=== PATIENT | male | born 1940 | race Hispanic/Latino ===

== ENCOUNTER 2018-11-13 11:15 | Emergency (ER) | payer MEDICARE ==
[2018-11-13 11:16] VITALS: BMI 23.9
--- NOTE | 2018-11-13 12:13 | ED PDOC ---
Arrival/HPI - General Chief Complaint: Cough, Cold, Congestion Time Seen by Provider: 11/13/18 11:38 - History of Present Illness Narrative History of Present Illness (Text): 78 yr old male w/ hx of RA on 2.5 mg Prednisone PO, L hip replacement, recent dx w/ pharyngitis and given 10d amoxicillin p/w voice change. Pt notes voice change ever since pharyngitis / sore throat began. He noted a cough as well as sore throat previous to treatment but notes that all his symptoms of cough, congestion, have now resolved and he is only concerned that his voice has changed. No slurred speech or difficulty swallowing. No difficulty moving his tongue. No change in sensation. No coughing now that he has been treated. Finished his abx yesterday. No headache, fever, chills or night sweats. No chest pain or sob. No joint pain or rashes. No neck stiffness. No new or sig. change in voice since being treated. No other complaints. Past Medical History - Musculoskeletal/Rheumatological Hx Arthritis: Yes - Gastrointestinal Hx Gastrointestinal Disorders: No - Genitourinary/Gynecological Hx Genitourinary Disorders: No Hx Reproductive Disorders: No - Psychiatric Hx Depression: No Hx Emotional Abuse: No Hx Physical Abuse: No Hx Substance Use: No - Surgical History Hx Orthopedic Surgery: Yes (LEFT HIP REPLACMENT 2005) - Anesthesia Hx Anesthesia: Yes Hx Anesthesia Reactions: No Hx Malignant Hyperthermia: No - Suicidal Assessment Feels Threatened In Home Enviroment: No Family/Social History Family/Social History: Unknown Family HX Smoking Status: Never Smoked Hx Alcohol Use: No Hx Substance Use: No Allergies/Home Meds Allergies/Adverse Reactions: Allergies No Known Allergies Allergy (Verified 05/20/16 13:52) Home Medications: Home Meds Medication Instructions Recorded Confirmed Prednisone 5 mg PO DAILY 07/14/13 05/20/16 Folic Acid 0.8 mg PO DAILY 05/15/16 05/20/16 Review of Systems - Review of Systems Constitutional: absent: Fatigue, Weight Change, Fevers, Night Sweats Eyes: absent: Vision Changes, Photophobia ENT: Voice Changes. absent: Hearing Changes, Tinnitus, TMJ Pain, Sore Throat, Rhinorrhea, Epistaxis, Sinus Congestion Respiratory: absent: SOB, Cough, Sputum, Wheezing Cardiovascular: absent: Chest Pain, Palpitations, Edema, Calf Pain Gastrointestinal: absent: Abdominal Pain, Stool Changes, Constipation, Diarrhea, Nausea, Vomiting, Appetite Changes, Hematochezia, Hematemesis, Anorexia, Food Intolerance Genitourinary Male: absent: Dysuria, Frequency, Hematuria Musculoskeletal: absent: Arthralgias, Back Pain, Neck Pain Skin: absent: Rash, Pruritis, Skin Lesions Neurological: absent: Headache, Dizziness, Focal Weakness, Gait Changes, Speech Changes, Facial Droop Endocrine: absent: Diaphoresis, Polyuria Hemo/Lymphatic: absent: Adenopathy, Easy Bleeding Physical Exam Vital Signs Temp Pulse Resp BP Pulse Ox 11/13/18 11:16 97.6 F 85 18 126/79 100 Temperature: Afebrile Blood Pressure: Normal Pulse: Regular Respiratory Rate: Normal Appearance: Positive for: Well-Appearing, Non-Toxic, Comfortable Pain Distress: None Mental Status: Positive for: Alert and Oriented X 3 - Systems Exam Head: Present: Atraumatic, Normocephalic Pupils: Present: PERRL Extroacular Muscles: Present: EOMI Conjunctiva: Present: Normal Ears: Present: Normal, NORMAL TM Mouth: Present: Moist Mucous Membranes Pharnyx: Present: Normal. No: ERYTHEMA, EXUDATE, TONSILS ENLARGED, Peritonsilar Swelling, Uvular Deviation, Muffled/Hoarse Voice, Strider, Soft Palate/Uvular Edema Nose (External): No: Atraumatic, Abrasion Nose (Internal): Present: Normal Inspection, Clear Mucous. No: Boggy, Purulent Mucous, Septal Deviation, Septal Hematoma Neck: Present: Normal Range of Motion. No: Meningeal Signs, MIDLINE TENDERNESS Respiratory/Chest: Present: Clear to Auscultation, Good Air Exchange. No: Respiratory Distress, Accessory Muscle Use, Wheezes, Decreased Breath Sounds Cardiovascular: Present: Regular Rate and Rhythm. No: Murmurs, Normal S1, S2 Abdomen: Present: Normal Bowel Sounds. No: Tenderness, Distention Back: Present: Normal Inspection. No: CVA Tenderness, Midline Tenderness Upper Extremity: Present: Normal Inspection. No: Cyanosis, Edema Lower Extremity: Present: Normal Inspection. No: Edema Neurological: Present: GCS=15, CN II-XII Intact, Speech Normal Skin: Present: Warm, Dry, Normal Color. No: Rashes Psychiatric: Present: Alert, Oriented x 3, Normal Insight Medical Decision Making ED Course and Treatment: 78 yr old M w/ hx of RA, L hip replacement, recent pharyngitis rx w/ amoxicillin p/w voice change since being dx w/ pharyngitis. Pt expected voice to have changed after RX. No other symptoms. No dyphagia / odynophagia / hot potatoe voice. Swallowing well. No cough. Likely lining of pharynx + vocal cord requires more time for healing, given recent pharygnitis, but given RA on prednisone, hx of PNA will seek labs and imaging. Pt in NAD, VS unremarkable pending imaging and labs pt agreeable 11/13/18 13:59 labs, xray unremarkable repeat exam unremarkable No indication of resp compromise pt in NAD, given return indications and followup clear for d/c home - RAD Interpretation Radiology Orders: 11/13/18 12:05 CHEST TWO VIEWS (PA/LAT) [RAD] Stat - Medication Orders Current Medication Orders: Discontinued Medications Acetaminophen (Tylenol 325mg Tab) 325 mg PO STAT STA Stop: 11/13/18 12:07 Disposition/Present on Arrival - Present on Arrival Any Indicators Present on Arrival: No History of DVT/PE: No History of Uncontrolled Diabetes: No Urinary Catheter: No History of Decub. Ulcer: No History Surgical Site Infection Following: None - Disposition Have Diagnosis and Disposition been Completed?: Yes Diagnosis: Hoarseness or changing voice, URI (upper respiratory infection) Disposition: HOME/ ROUTINE Disposition Time: 13:58 Condition: GOOD Discharge Instructions (ExitCare): Viral Upper Respiratory Infection, Adult (DC) Additional Instructions: JANIS MADDEN, thank you for letting us take care of you today. Your provider was Angel Mitchell and you were treated for CONGESTION. The emergency medical care you received today was directed at your acute symptoms. If you were prescribed any medication, please fill it and take as directed. It may take several days for your symptoms to resolve. Return to the Emergency Department if your symptoms worsen, do not improve, or if you have any other problems. Please contact your doctor or call one of the physicians/clinics you have been referred to that are listed on the Patient Visit Information form that is included in your discharge packet. Bring any paperwork you were given at discharge with you along with any medications you are taking to your follow up visit. Our treatment cannot replace ongoing medical care by a primary care provider outside of the emergency department. Thank you for allowing the [facility] team to be part of your care today. If you had an X-Ray or CT scan: A Radiologist will review the ED reading if any change in treatment is needed we will contact you. If you had a blood, urine, or wound culture: It will take several days for the results, if any change in treatment is needed we will contact you. If you had an STI test: It will take 48 hours for the results. Please call after 1 week if you have not heard back. Referrals: [facility] [Outside] - Follow up with primary [facility] [Outside] - Follow up with primary [facility] [Outside] - Follow up with primary Forms: [employer] (Belarusian)
[2018-11-13 13:09] LABS: BASO # 0.01 K/mm3 (0.0-2.0); BASO % 0.2 % (0.0-3.0); EOS # 0.1 (0.0-0.7); EOS % 1.1 % (1.5-5.0); GRAN # 4.99 (1.4-6.5); GRAN % 91.4 % (50.0-68.0); LYMPH # 0.3 (1.2-3.4); LYMPH % 4.6 % (22.0-35.0); MEAN CELL VOLUME 86.9 fl (80.0-105.0); MEAN CORPUSCULAR HEMOGLOBIN 28.4 pg (25.0-35.0); MEAN CORPUSCULAR HGB CONC 32.6 g/dl (31.0-37.0); MEAN PLATELET VOLUME 9.1 fl (7.0-11.0); MONO # 0.2 (0.1-0.6); MONO % 2.7 % (1.0-6.0); PLATELET COUNT 235 10^3/uL (120.0-450.0); RBC 3.88 10^6/uL (3.5-6.1); WHITE BLOOD COUNT 5.5 10^3/uL (4.5-11.0)
[2018-11-13 13:24] LABS: ALB/GLOB RATIO 0.9 (1.1-1.8); ALBUMIN 3.8 g/dL (3.0-4.8); ALT/SGPT 15 U/L (7-56); AST/SGOT 30 U/L (17-59); BLOOD UREA NITROGEN 15 mg/dL (7-21); CALCIUM 8.7 mg/dL (8.4-10.5); GFR NON-AFRICAN AMERICAN > 60
[2018-11-13 13:55] LABS: LYMPHOCYTE 4 % (22.0-35.0); MONOCYTE 2 % (1.0-6.0); NEUTROPHIL 94 % (50.0-70.0)
[2018-11-13 13:56] LABS: PLATELET ESTIMATE NORMAL (NORMAL)
--- NOTE | 2018-11-13 14:11 | RAD ---
Date of service: 11/13/2018 HISTORY: voice change after pharyngitis, hx pna COMPARISON: 05/15/2016 TECHNIQUE: Chest PA and lateral FINDINGS: LUNGS: No active pulmonary disease. PLEURA: No significant pleural effusion identified. No pneumothorax apparent. CARDIOVASCULAR: No aortic atherosclerotic calcification present. Normal cardiac size. No pulmonary vascular congestion. OSSEOUS STRUCTURES: No significant abnormalities. VISUALIZED UPPER ABDOMEN: Normal. OTHER FINDINGS: None. IMPRESSION: No active disease.
[2018-11-13 14:54] VITALS: BP 145/77; PULSE 81; RESP 16; TEMP 97.9; O2SAT 97
== END 2018-11-13 14:52 | disposition home or self-care (01) ==
LOC: ED 11:15
DX: J06.9 Acute upper respiratory infection, unspecified (principal)

== ENCOUNTER 2019-02-06 12:03 | Emergency (ER) | payer MEDICARE ==
[2019-02-06 12:03] VITALS: BMI 23.9
[2019-02-06 12:28] VITALS: RESP 18
--- NOTE | 2019-02-06 13:05 | ED PDOC ---
Arrival/HPI - General Chief Complaint: Lower Extremity Problem/Injury Historian: Patient - History of Present Illness Narrative History of Present Illness (Text): 02/06/19 13:01 78 year old male with a past medical history of RA, left hip replacement and pharyngitis presents to the emergency department complaining of swelling in his left foot for 3 days. Patient endorses pain upon touch, but denies any trauma. Patient also denies any fever, chills, headache, dizziness, chest pain or any other complaints. Time/Duration: < week Symptom Onset: Gradual Symptom Course: Unchanged Activities at Onset: Light Context: Home Past Medical History - Provider Review Nursing Documentation Reviewed: Yes - Infectious Disease Hx of Infectious Diseases: None - Cardiac Hx Cardiac Disorders: No - Neurological Hx Neurological Disorder: No - Endocrine/Metabolic Hx Endocrine Disorders: No - Musculoskeletal/Rheumatological Hx Arthritis: Yes - Gastrointestinal Hx Gastrointestinal Disorders: No - Genitourinary/Gynecological Hx Genitourinary Disorders: No Hx Reproductive Disorders: No - Psychiatric Hx Depression: No Hx Emotional Abuse: No Hx Physical Abuse: No Hx Substance Use: No - Surgical History Hx Orthopedic Surgery: Yes (LEFT HIP REPLACMENT 2005) - Anesthesia Hx Anesthesia: Yes Hx Anesthesia Reactions: No Hx Malignant Hyperthermia: No - Suicidal Assessment Feels Threatened In Home Enviroment: No Family/Social History - Physician Review Nursing Documentation Reviewed: Yes Family/Social History: Unknown Family HX Smoking Status: Never Smoked Hx Alcohol Use: No Hx Substance Use: No Allergies/Home Meds Allergies/Adverse Reactions: Allergies No Known Allergies Allergy (Verified 05/20/16 13:52) Home Medications: Home Meds Medication Instructions Recorded Confirmed Prednisone 5 mg PO DAILY 07/14/13 02/06/19 Folic Acid 0.8 mg PO DAILY 05/15/16 02/06/19 Naproxen Sodium [Aleve] 0 mg PO PRN PRN 02/06/19 02/06/19 Review of Systems - Physician Review All systems were reviewed & negative as marked: Yes - Review of Systems Constitutional: absent: Fevers Respiratory: absent: Cough Cardiovascular: absent: Chest Pain Gastrointestinal: absent: Nausea, Vomiting Musculoskeletal: Joint Swelling (swelling in left foot). absent: Back Pain, Neck Pain Skin: absent: Rash Neurological: absent: Headache, Dizziness Endocrine: absent: Diaphoresis Physical Exam Vital Signs Reviewed: Yes Vital Signs Temp Pulse Resp BP Pulse Ox 02/06/19 12:24 97.3 F L 76 18 134/70 99 Temperature: Afebrile Blood Pressure: Normal Pulse: Regular Respiratory Rate: Normal Appearance: Positive for: Well-Appearing, Non-Toxic, Comfortable Pain Distress: None Mental Status: Positive for: Alert and Oriented X 3 - Systems Exam Head: Present: Atraumatic, Normocephalic Pupils: Present: PERRL Extroacular Muscles: Present: EOMI Conjunctiva: Present: Normal Mouth: Present: Moist Mucous Membranes Neck: Present: Normal Range of Motion Respiratory/Chest: Present: Clear to Auscultation, Good Air Exchange. No: Respiratory Distress, Accessory Muscle Use Cardiovascular: Present: Regular Rate and Rhythm, Normal S1, S2. No: Murmurs Abdomen: No: Tenderness, Distention, Peritoneal Signs Back: Present: Normal Inspection Upper Extremity: Present: Normal Inspection. No: Cyanosis, Edema Lower Extremity: Present: Tenderness (left foot), Other (fluctuant area 1cm diameter, tender but not warm to touch). No: Edema, Erythema Neurological: Present: GCS=15, CN II-XII Intact, Speech Normal Skin: Present: Warm, Dry, Normal Color. No: Rashes Psychiatric: Present: Alert, Oriented x 3, Normal Insight, Normal Concentration Medical Decision Making ED Course and Treatment: 02/06/19 13:47 Impression: 78 year old male presents to the emergency department complaining of swelling in his left foot for 3 days. Differential Diagnosis included but are not limited to: Chronic changes on extremity due to Rheumatoid arthritis Plan: -- Basic labs -- X-ray left foot -- Reassess and disposition Prior Visits: Notes and results from previous visits were reviewed. Progress notes: 02/06/19 15:01 X-ray left foot, reviewed by radiologist shows: No radiographic manifestations of either acute osteomyelitis or acute fracture. JOINTS: Subluxation 5th metatarsal phalangeal joint. Subluxation 2nd metatarsal phalangeal joint. Hammertoe deformities 3rd and 4th digits. SOFT TISSUES: Focal soft tissue swelling adjacent to the base of 5th metatarsal without evidence of fracture or osteomyelitis. 02/06/19 15:53 podiatry called, area was drained, showed 5cc of blood. Patient to follow up with podiatry early next week. - Scribe Statement The provider has reviewed the documentation as recorded by the Scribe Di Maderae Provider Sunita Attestation: All medical record entries made by the Sunita were at my direction and personally dictated by me. I have reviewed the chart and agree that the record accurately reflects my personal performance of the history, physical exam, medical decision making, and the department course for this patient. I have also personally directed, reviewed, and agree with the discharge instructions and disposition. Disposition/Present on Arrival - Present on Arrival Any Indicators Present on Arrival: No History of DVT/PE: No History of Uncontrolled Diabetes: No Urinary Catheter: No History of Decub. Ulcer: No History Surgical Site Infection Following: None - Disposition Have Diagnosis and Disposition been Completed?: Yes Diagnosis: Hematoma Disposition: HOME/ ROUTINE Disposition Time: 15:25 Condition: IMPROVED Additional Instructions: JANIS MADDEN, thank you for letting us take care of you today. Your provider was Lc Griffin DO and you were treated for INFECTED FOOT. The emergency medical care you received today was directed at your acute symptoms. If you were prescribed any medication, please fill it and take as directed. It may take several days for your symptoms to resolve. Return to the Emergency Department if your symptoms worsen, do not improve, or if you have any other problems. Please contact your doctor or call one of the physicians/clinics you have been referred to that are listed on the Patient Visit Information form that is included in your discharge packet. Bring any paperwork you were given at discharge with you along with any medications you are taking to your follow up visit. Our treatment cannot replace ongoing medical care by a primary care provider outside of the emergency department. Thank you for allowing the [facility] team to be part of your care today. 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 Keep area clean and dry at all times. Referrals: Adama Limon DPM [Staff Provider] - Follow up with primary Forms: [employer] (Montenegrin)
[2019-02-06 13:23] LABS: EOS # 0.1 (0.0-0.7); EOS % 1.6 % (1.5-5.0); HEMOGLOBIN 11.2 g/dL (14.0-18.0); LYMPH # 0.2 (1.2-3.4); LYMPH % 4.2 % (22.0-35.0); MEAN CELL VOLUME 90.8 fl (80.0-105.0); MEAN CORPUSCULAR HEMOGLOBIN 29.3 pg (25.0-35.0); MEAN CORPUSCULAR HGB CONC 32.3 g/dl (31.0-37.0); MEAN PLATELET VOLUME 9.1 fl (7.0-11.0); MONO # 0.1 (0.1-0.6); MONO % 2.4 % (1.0-6.0); PLATELET COUNT 200 10^3/uL (120.0-450.0); RBC 3.82 10^6/uL (3.5-6.1); RED CELL DISTRIBUTION WIDTH 14.8 % (11.5-14.5); WHITE BLOOD COUNT 3.8 10^3/uL (4.5-11.0)
--- NOTE | 2019-02-06 13:40 | CP.PCM.CON ---
<Herrera Walters - Last Filed: 02/06/19 15:29> History of Present Illness - History of Present Illness History of Present Illness: Podiatry Consult Note - Dr. Limon 78 year old male patient PMHx RA, hx of L hip replacement seen and evaluated in ED concerning left foot wound. Patient states 2 days ago he first noticed a bump on the side of his left foot which has progressively increased in size. Patient reports moderate pain with pressure, and has been taking Aleve as needed for pain relief. 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 Patient denies recent nausea, fever, chills, sob. No other pedal complaints. Review of Systems - Review of Systems All systems: reviewed and no additional remarkable complaints except (as per HPI) Past Patient History - Infectious Disease Hx of Infectious Diseases: None - Past Social History Smoking Status: Never Smoked - CARDIAC Hx Cardiac Disorders: No - NEUROLOGICAL Hx Neurological Disorder: No - ENDOCRINE/METABOLIC Hx Endocrine Disorders: No - MUSCULOSKELETAL/RHEUMATOLOGICAL Hx Arthritis: Yes - GASTROINTESTINAL Hx Gastrointestinal Disorders: No - GENITOURINARY/GYNECOLOGICAL Hx Genitourinary Disorders: No Hx Reproductive Disorders: No - PSYCHIATRIC Hx Depression: No Hx Emotional Abuse: No Hx Physical Abuse: No Hx Substance Use: No - SURGICAL HISTORY Hx Orthopedic Surgery: Yes (LEFT HIP REPLACMENT 2005) - ANESTHESIA Hx Anesthesia: Yes Hx Anesthesia Reactions: No Hx Malignant Hyperthermia: No Meds Allergies/Adverse Reactions: Allergies Allergy/AdvReac Type Severity Reaction Status Date / Time No Known Allergies Allergy Verified 05/20/16 13:52 Physical Exam - Constitutional Appears: Non-toxic, No Acute Distress - Extremities Exam Additional comments: VASC: DP and PT pulses palpable 2/4 b/l. CFT <3 seconds to digits x5 b/l. Temperature gradient warm to warm, with no significant increase in warmth to lateral left foot. Minimal edema periwound L foot. Varicosities present. NEURO: Light touch and protective sensation intact. DERM: Hemorrhagic bullae surrounding left foot 5th metatarsal styloid process. Ulcer noted to plantar styloid process L foot measuring approximately 0.5 x 0.5 x 0.2 cm with epithelializing base and hyperkeratotic rim. Minimal periwound erythema present <1cm. Seborrheic keratoses present b/l. ORTHO: Pain on palpation noted to left foot bullae. Severe fibular deviation noted to lesser digits b/l. Severe HAV deformity present b/l. - Neurological Exam Neurological exam: Alert, Oriented x3 - Psychiatric Exam Psychiatric exam: Normal Affect, Normal Mood Results - Vital Signs Recent Vital Signs: Last Vital Signs Temp 97.3 F L 02/06/19 12:24 Pulse 76 02/06/19 12:24 Resp 18 02/06/19 12:24 BP 134/70 02/06/19 12:24 Pulse Ox 99 02/06/19 12:24 - Labs Result Diagrams: 02/06/19 13:10 02/06/19 13:10 Labs: Laboratory Results - last 24 hr 02/06/19 13:10 WBC 3.8 L D RBC 3.82 Hgb 11.2 L Hct 34.7 L MCV 90.8 D MCH 29.3 MCHC 32.3 RDW 14.8 H Plt Count 200 MPV 9.1 Neut % (Auto) 91.8 H Lymph % (Auto) 4.2 L [place] % (Auto) 2.4 Eos % (Auto) 1.6 Baso % (Auto) 0.0 Lymph # (Auto) 0.2 L [place] # (Auto) 0.1 Eos # (Auto) 0.1 Baso # (Auto) 0.00 Absolute Neuts (auto) 3.49 Assessment & Plan - Assessment and Plan (Free Text) Assessment: 78M PMHx RA, hx of left hip replacement with left foot hemorragic bullae, stable Plan: Patient seen and evaluated Discussed with attending, Dr. Limon Afebrile, WBC 3.8 Left foot XR reveal increased soft tissue density surrounding 5th met styloid process, no cortical destruction noted Bedside incision and drainage performed using a #15 blade without incident - approximately 3-4cc of sanguinous drainage able to be expressed; no purulence expressed Wound cleansed with betadine and dressed with DSD Patient to be WBAT in surgical shoe Patient to follow up with Dr. Limon in the wound care center on 02/09/19 Stable for d/c per podiatry Thank you for the consult <Adama Limon - Last Filed: 02/09/19 08:07> Results - Vital Signs Recent Vital Signs: Last Vital Signs Temp 98.2 F 02/06/19 16:10 Pulse 68 02/06/19 16:10 Resp 18 02/06/19 16:10 BP 130/66 02/06/19 16:10 Pulse Ox 96 02/06/19 16:10 - Labs Result Diagrams: 02/06/19 13:10 02/06/19 13:10 Attending/Attestation - Attestation I have personally seen and examined this patient.: Yes I have fully participated in the care of the patient.: Yes I have reviewed all pertinent clinical information: Yes
[2019-02-06 13:46] LABS: ALB/GLOB RATIO 0.8 (1.1-1.8); ALBUMIN 3.3 g/dL (3.0-4.8); ALT/SGPT 37 U/L (7-56); AST/SGOT 42 U/L (17-59); BLOOD UREA NITROGEN 17 mg/dL (7-21); CALCIUM 8.6 mg/dL (8.4-10.5); GFR NON-AFRICAN AMERICAN > 60
[2019-02-06 14:20] LABS: EOSINOPHIL 1 % (0.0-3.0); LYMPHOCYTE 5 % (22.0-35.0); MONOCYTE 2 % (1.0-6.0); NEUTROPHIL 92 % (50.0-70.0)
[2019-02-06 14:21] LABS: ANISOCYTOSIS 1+; HYPOCHROMIA SLIGHT; LARGE PLATELETS PRESENT; OVALOCYTES SLIGHT; PLATELET ESTIMATE NORMAL (NORMAL)
[2019-02-06 14:22] LABS: TOXIC GRANULATION SLIGHT
--- NOTE | 2019-02-06 14:53 | RAD ---
Date of service: 02/06/2019 PROCEDURE: Left Foot Radiographs. HISTORY: ? abscess to lateral aspect of foot COMPARISON: None. FINDINGS: BONES: No visible fracture. No evidence of osteomyelitis. JOINTS: Subluxation 5th metatarsal phalangeal joint. Subluxation 2nd metatarsal phalangeal joint. Hammertoe deformities 3rd and 4th digits. SOFT TISSUES: Focal soft tissue swelling adjacent to the base of 5th metatarsal without evidence of fracture or osteomyelitis. OTHER FINDINGS: None. IMPRESSION: Articular or soft tissue findings described in greater detail above. No radiographic manifestations of either acute osteomyelitis or acute fracture.
[2019-02-06 16:06] VITALS: O2SAT 96
[2019-02-06 16:11] VITALS: BP 130/66; PULSE 68; TEMP 98.2
== END 2019-02-06 16:11 | disposition home or self-care (01) ==
LOC: ED 12:03
DX: S90.32XA Contusion of left foot, initial encounter (principal); X58.XXXA Exposure to other specified factors, initial encounter; Z96.642 Presence of left artificial hip joint